=== PATIENT | female | born 1990 | race Caucasian/White ===

== ENCOUNTER 2018-08-08 23:31 | Emergency (ER) | payer BC ==
[2018-08-08 23:43] VITALS: TEMP 97.6; O2SAT 100
[2018-08-08] MEDS ORDERED: Tdap Vaccine 0.5 ml Vial (10-64 yrs) IM ONE (23:59)
[2018-08-08] MEDS ORDERED: Sodium Chloride 0.9% 1,000 ML IV STA (23:59)
[2018-08-09] MEDS ORDERED: Tdap Vaccine 0.5 ml Vial (10-64 yrs) IM ONE (00:19)
--- NOTE | 2018-08-09 00:34 | ED PDOC ---
Syncope/Near Syncope/Dizziness Time Seen by Provider: 08/08/18 23:47 Chief Complaint (Nursing): Syncope Chief Complaint (Provider): Syncope History Per: Patient History/Exam Limitations: no limitations Onset/Duration Of Symptoms: Hrs (this evening) Current Symptoms Are (Timing): Still Present Additional Complaint(s): 27 year old female presents to the ED complaining of syncope. Patient states, earlier this evening, she woke up from a nap and she felt thirsty so she went to the kitchen. Next thing patient remembers was that she was on the ground. As per her boyfriend, he heard her walk to the kitchen and heard her fall to the ground as well. He immediately went to the kitchen and saw her lying on her back and was conscious and awake. Since then she has been having pain to the left side of her head and noticed a lump there. Patient states she did pass ou t. Denies chest pain, palpitations, extremity pain, nausea, vomiting, or history of anemia. PMD: none provided Past Medical History Reviewed: Historical Data, Nursing Documentation, Vital Signs Vital Signs: Last Vital Signs Temp 97.6 F 08/08/18 23:38 Pulse 76 08/08/18 23:38 Resp 16 08/08/18 23:38 BP 105/73 08/08/18 23:38 Pulse Ox 100 08/08/18 23:38 - Medical History PMH: No Chronic Diseases Denies: Anemia - Surgical History Surgical History: No Surg Hx - Family History Family History: States: Unknown Family Hx - Allergies Allergies/Adverse Reactions: Allergies Allergy/AdvReac Type Severity Reaction Status Date / Time No Known Allergies Allergy Verified 08/08/18 23:42 Review of Systems ROS Statement: Except As Marked, All Systems Reviewed And Found Negative Cardiovascular: Negative for: Chest Pain, Palpitations Gastrointestinal: Negative for: Nausea, Vomiting Musculoskeletal: Positive for: Other (Left sided head pain with lump; no extremity pain) Neurological: Positive for: Other (Syncope) Physical Exam - Reviewed Nursing Documentation Reviewed: Yes Vital Signs Reviewed: Yes - Physical Exam Appears: Positive for: Non-toxic, No Acute Distress Head Exam: Positive for: ATRAUMATIC (parietal scalp hematoma with superficial abrasion), NORMOCEPHALIC Skin: Positive for: Normal Color, Warm, Dry Eye Exam: Positive for: Normal appearance Neck: Positive for: Normal, Painless ROM Cardiovascular/Chest: Positive for: Regular Rate, Rhythm. Negative for: Murmur Respiratory: Positive for: Normal Breath Sounds. Negative for: Wheezing, Respiratory Distress Gastrointestinal/Abdominal: Positive for: Normal Exam, Soft. Negative for: Tenderness Extremity: Positive for: Normal ROM Neurologic/Psych: Positive for: Alert, Oriented, Gait (steady and unassisted). Negative for: Motor/Sensory Deficits - Laboratory Results Result Diagrams: 08/09/18 00:21 08/09/18 00:21 - ECG ECG: Positive for: Interpreted By Tn ECG Rhythm: Positive for: Sinus Bradycardia. Negative for: ST/T Changes Rate: 56 O2 Sat by Pulse Oximetry: 100 (RA) Pulse Ox Interpretation: Normal - Progress Re-evaluation Time: 02:54 (Advised to f/u with Dr. Kaplan (PMD) for further evaluation. Informed of all results. Agrees with plan and care. Return precautions given.) Condition: Re-examined, Improved Medical Decision Making Medical Decision Making: Initial Plan: --CT Head --ECG --CMP --ED urine dipstick --CBC --Glucose routine --Tetanus 0.5mL IM --Sodium chloride 1000mL IV 01:46 CT head Normal size of the ventricles and extra-axial spaces for the patient's age. Normal white matter tracts of the supratentorial brain. Normal basal ganglia and thalami. Normal brainstem. Normal cerebellum. There is no demonstrated extra-axial, intraparenchymal, or intraventricular hemorrhage. There are no findings of an acute ischemic infarction. Normal calvarium. There is no demonstrated fracture. Normal soft tissue structures. Normal visualized paranasal sinuses. Left parietal subgaleal soft tissue hematoma. IMPRESSION: Normal unenhanced CT scan of the brain. Left parietal subgaleal soft tissue hematoma. Scribe Attestation: Documented by William Akhtar acting as a scribe for Kermit DODGE. Provider Scribe Attestation: All medical record entries made by the Scribe were at my direction and perso tutu dictated by me. I have reviewed the chart and agree that the record accurately reflects my personal performance of the history, physical exam, medical decision making, and the department course for this patient. I have also personally directed, reviewed, and agree with the discharge instructions and disposition. Disposition - Clinical Impression Clinical Impression: Syncope - Patient ED Disposition Is Patient to be Admitted: No - Disposition Referrals: [facility] [Outside] Disposition: Routine/Home Disposition Time: 02:55 Condition: IMPROVED Additional Instructions: FOLLOW UP WITH DR. KAPLAN FOR FURTHER EVALUATION RETURN TO ED IMMEDIATELY IF SYMPTOMS WORSEN CHARITY AQUINO, thank you for letting us take care of you today. Your provider was Manish Clement MD and you were treated for FALL, HEAD INJURY. The emergency medical care you received today was directed at your acute symptoms. If you were prescribed any medication, please fill it and take as directed. It may take several days for your symptoms to resolve. Return to the Emergency Department if your symptoms worsen, do not improve, or if you have any other problems. Please contact your doctor or call one of the physicians/clinics you have been referred to that are listed on the Patient Visit Information form that is included in your discharge packet. Bring any paperwork you were given at discharge with you along with any medications you are taking to your follow up visit. Our treatment cannot replace ongoing medical care by a primary care provider outside of the emergency department. Thank you for allowing the [facility] team to be part of your care today. If you had an X-Ray or CT scan: A Radiologist will review the ED reading if any change in treatment is needed we will contact you. If you had a blood, urine, or wound culture: It will take several days for the results, if any change in treatment is needed we will contact you. If you had an STI test: It will take 48 hours for the results. Please call after 1 week if you have not heard back. Instructions: Syncope (Fainting) (DC) Forms: [employer] ([place])
[2018-08-09 00:43] LABS: BASO % 0.3 % (0.0-2.0); EOS # 0.1 K/uL (0.0-0.7); EOS % 1.7 % (0.0-4.0); HEMOGLOBIN 13.1 g/dL (12.0-16.0); LYMPH # 1.5 K/uL (1.0-4.3); LYMPH % 20.5 % (20.0-40.0); MEAN CELL VOLUME 90.7 fl (81.0-99.0); MEAN CORPUSCULAR HEMOGLOBIN 30.5 pg (27.0-31.0); MEAN CORPUSCULAR HGB CONC 33.6 g/dL (33.0-37.0); MEAN PLATELET VOLUME 9.2 fl (7.2-11.7); MONO # 0.5 K/uL (0.0-0.8); MONO % 6.2 % (0.0-10.0); NEUT # 5.2 K/uL (1.8-7.0); NEUT % 71.3 % (50.0-75.0); NRBC % 0.1 % (0.0-0.0); RBC 4.29 Mil/uL (3.80-5.20); RED CELL DISTRIBUTION WIDTH 12.1 % (11.5-14.5); WHITE BLOOD COUNT 7.3 K/uL (4.8-10.8)
[2018-08-09 00:48] LABS: BLOOD UREA NITROGEN 15 mg/dl (7-17); CALCIUM 9.2 mg/dL (8.4-10.2); GFR NON-AFRICAN AMERICAN > 60
[2018-08-09 00:50] LABS: ALB/GLOB RATIO 1.3 (1.0-2.1); ALBUMIN 4.3 g/dL (3.5-5.0); ALT/SGPT 16 U/L (9-52); AST/SGOT 29 U/L (14-36)
[2018-08-09 01:47] VITALS: RESP 22
[2018-08-09 03:05] VITALS: BP 110/77
[2018-08-09 05:35] VITALS: PULSE 56
--- NOTE | 2018-08-09 08:32 | CT ---
Date of service: 08/09/2018 PROCEDURE: CT HEAD WITHOUT CONTRAST. HISTORY: trauma COMPARISON: None available. TECHNIQUE: Axial computed tomography images were obtained through the head/brain without intravenous contrast. Radiation dose: Total exam DLP = 726.88 mGy-cm. This CT exam was performed using one or more of the following dose reduction techniques: Automated exposure control, adjustment of the mA and/or kV according to patient size, and/or use of iterative reconstruction technique. FINDINGS: HEMORRHAGE: No intracranial hemorrhage. BRAIN: Tolbert-white matter differentiation is preserved. There is a 4 mm left frontal extra-axial calcified lesion likely a small calcified meningioma. There is no mass effect or abnormal extra-axial fluid collection. There is no territorial infarction. The midline sagittal structures are normal. VENTRICLES: There is mild age-related global parenchymal volume loss and proportionate enlargement of the ventricles and cortical sulci. CALVARIUM: There is no calvarial fracture. There is left parietal scalp hematoma. PARANASAL SINUSES: Predominantly clear. MASTOID AIR CELLS: Predominantly clear. OTHER FINDINGS: None. IMPRESSION: No acute intracranial abnormality. Left parietal scalp hematoma. A preliminary report was provided by [facility].
--- NOTE | 2018-08-09 14:46 | CARD ---
APPROVED REPORT Date of service: 08/09/2018 EKG Measurement Heart [id number] NM [id number] <Conclusion> Sinus bradycardia Rightward axis Borderline ECG
== END 2018-08-09 03:14 | disposition home or self-care (01) ==
LOC: H.ER 23:31
DX: R55 Syncope and collapse (principal); S00.03XA Contusion of scalp, initial encounter; X58.XXXA Exposure to other specified factors, initial encounter; Y92.89 Other specified places as the place of occurrence of the external cause
CPT/HCPCS: 70450; 80053; 81025; 82948; 85025; 90471; 90715; 93005; 96360; 99285; G0480; J7030